=== PATIENT | female | born 1995 | race African-American/Black ===

== ENCOUNTER → 2021-10-05 08:57 | Outpatient (BNVA) | payer OTHER, MEDICAID, SELFPAY | PROVIDERS: PCP Internal Medicine; Visit Provider Psychiatry & Neurology Neurology | DX: G24.3 Spasmodic torticollis (principal) | CPT/HCPCS: 64616; J0585 ==

== ENCOUNTER → 2022-01-04 09:28 | Outpatient (BNVA) | payer OTHER, MEDICAID, SELFPAY | PROVIDERS: PCP Internal Medicine; Visit Provider Psychiatry & Neurology Neurology | DX: G24.3 Spasmodic torticollis (principal) | CPT/HCPCS: 64616; J0585 ==

== ENCOUNTER → 2022-04-07 10:26 | Outpatient (BNVA) | payer OTHER, MEDICAID, SELFPAY | PROVIDERS: PCP Internal Medicine; Visit Provider Psychiatry & Neurology Neurology | DX: G24.3 Spasmodic torticollis (principal); G43.109 Migraine with aura, not intractable, without status migrainosus | CPT/HCPCS: 64616; J0585 ==

== ENCOUNTER → 2022-11-19 07:51 | Outpatient (BNVA) | payer OTHER, MEDICAID, SELFPAY | PROVIDERS: PCP Internal Medicine; Visit Provider Psychiatry & Neurology Neurology | DX: G24.3 Spasmodic torticollis (principal); G43.109 Migraine with aura, not intractable, without status migrainosus | CPT/HCPCS: 64616; J0585 ==

== ENCOUNTER → 2023-02-17 07:34 | Outpatient (BNVA) | payer OTHER, MEDICAID, SELFPAY | PROVIDERS: PCP Internal Medicine; Visit Provider Psychiatry & Neurology Neurology | DX: G24.3 Spasmodic torticollis (principal); G43.109 Migraine with aura, not intractable, without status migrainosus | CPT/HCPCS: 64616; J0585 ==

== ENCOUNTER 2023-05-30 07:35 | Outpatient (AMB) | payer OTHER, MEDICAID, SELFPAY ==
--- NOTE | 2023-05-30 07:44 | MHC.OFFVIS ---
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: No Allergies No Known Allergies [No Known Allergies*] Allergy (Unverified 05/30/23 07:44) HPI HPI Comments History of Present Illness Details Spasmodic Torticollis Headaches Bruxism 27y/o female comes for treatment with botulinum Toxin Side effects including spread of toxin effects , dysphagia, neck pain, headaches, breathing difficulties, bronchitis etc was discussed in detail and the patient agreed to the procedure.\ Botulinum toxin type A 200 units Lot number [id number] expiration -11/2025 was diluted with 4 cc of normal saline Muscles injected - Bilateral Scalene muscles- 25 units each Bilateral Levator-25 units ecah Bilateral Lateral pterygoid- 12.5 units each Bilateral Masseter- 25 units each Bilateral Temporalis -12.5 units each Total used- 200 units PFSH Medical History Acid reflux Headache Surgical History Hx of appendectomy [place] teeth removed Family History Father Migraine Mother Migraine Vertigo Family/Other Epilepsy Social History Alcohol intake: never Patient Tobacco Use Status: Never used Tobacco Physical Exam Vital Signs: Last Vital Signs Pulse 86 05/30/23 07:45 BP 98/66 05/30/23 07:45 Pulse Ox 98 05/30/23 07:45 Oxygen Delivery Method Room Air 05/30/23 07:45 Const Orientation/consciousness: patient oriented x3 HEENT Other: tightness in bilateral levator and scalenes with restricted range of motion Head: Yes normocephalic Neuro General: patient oriented x3 and moves all extremities Gait exam (Neuro): Normal gait present Office Procedures Botulinum toxin Injection 37964 - Dystonia Procedure code (CPT) selection complete Office Meds onabotulinumtoxinA Performing Provider: Fidelina Gregorio MD Administered by: Fidelina Gregorio MD on 05/30/23 08:04 Dose Route Admin Location Lot Number Expiration Date NDC Covering Machine Operator 200 unit IM [id number] 11/03/25 9386-2210-40 ALLERGAN/BOTOX Comments: see HPI Assessment & Plan Assessment & Plan (1) 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
[2023-05-30 07:45] VITALS: BP 98/66; PULSE 86; O2SAT 98
== END 2023-05-30 08:01 | disposition home or self-care (01) ==
PROVIDERS: Visit Provider Psychiatry & Neurology Neurology
DX: G24.3 Spasmodic torticollis (principal)
CPT/HCPCS: 64616

== ENCOUNTER → 2023-05-30 07:35 | Outpatient (BNVA) | payer OTHER, MEDICAID, SELFPAY | PROVIDERS: Visit Provider Psychiatry & Neurology Neurology | DX: G24.3 Spasmodic torticollis (principal); G24.9 Dystonia, unspecified; G43.709 Chronic migraine without aura, not intractable, without status migrainosus | CPT/HCPCS: 64616; 99211; J0585 ==

== ENCOUNTER → 2023-09-07 08:06 | Outpatient (BNVA) | payer OTHER, MEDICAID, SELFPAY | PROVIDERS: PCP Internal Medicine; Visit Provider Psychiatry & Neurology Neurology ==

== ENCOUNTER 2023-10-13 15:26 | Outpatient (AMB) | payer MEDICAID, SELFPAY ==
--- NOTE | 2023-10-13 15:31 | A.OFFVIS_ITS ---
Intake Intake Visit Reasons: Botox -Pending approval -09/19 - Conf Allergies No Known Allergies [No Known Allergies*] Allergy (Verified 10/13/23 15:32) Medication List - Last Reconciled 10/13/23 by Fidelina Gregorio MD amitriptyline 10 mg PO BEDTIME cyclobenzaprine 10 mg PO BEDTIME 30 days fluticasone propionate 50 mcg/actuation (Flonase Allergy Relief) 1 spray intranasal DAILY magnesium oxide 400 mg PO DAILY onabotulinumtoxinA (Botox) IM .q 3 months HPI HPI Comments History of Present Illness Details Spasmodic Torticollis Headaches Bruxism 28y/o female comes for treatment with adan tulinum Toxin Side effects including spread of toxin effects , dysphagia, neck pain, headaches, breathing difficulties, bronchitis etc was discussed in detail and the patient agreed to the procedure.\ Botulinum toxin type A 200 units Lot number -[id number] expiration - 01/2026 was diluted with 4 cc of normal saline Muscles injected - Bilateral Scalene muscles- 25 units each Bilateral Levator-25 units ecah Bilateral Lateral pterygoid- 12.5 units each Bilateral Masseter- 25 units each Bilateral Temporalis -12.5 units each Total used- 200 units PFSH Medical History Acid reflux Headache Surgical History [place] teeth removed Hx of appendectomy Family History Father Migraine Mother Migraine Vertigo Family/Other Epilepsy Social History Alcohol intake: never Patient Tobacco Use Status: Never used Tobacco Physical Exam Const Orientation/consciousness: patient oriented x3 HEENT Other: tightness in bilateral levator and scalenes with restricted range of motion Head: Yes normocephalic Neuro General: patient oriented x3 and moves all extremities Gait exam (Neuro): Normal gait present Office Procedures Botulinum toxin Injection 06463 - Dystonia Procedure code (CPT) selection complete Office Meds onabotulinumtoxinA 200 unit solution for injection Performing Provider: Fidelina Gregorio MD Performing Location: [facility] [place] [facility] Administered by: Fidelina Gregorio MD on 10/13/23 15:51 Dose Route Admin Location Dispensed Lot Number Expiration Date NDC Blow Mold Operator 200 unit IM 200 units [id number] 01/31/26 0750-5042-38 ALLERGAN/BOTOX Comments: see HPI Assessment & Plan Assessment & Plan (1) Cervical dystonia: Code(s): G24.3 - Spasmodic torticollis (2) Chronic migraine with aura: Code(s): G43.109 - Migraine with aura, not intractable, without status migrainosus Plan Patient tolerated the procedure well She will call with any side effects amitriptyline 10mg qhs Orders: Orders AMB Botulinum toxin Injection 10/13/23 G24.3 - Spasmodic torticollis AMB Botulinum toxin Injection 10/13/23 G24.3 - Spasmodic torticollis Medications: New onabotulinumtoxinA 200 units IM ONCE 1 ea 0RF torticollis G24.3 - Spasmodic torticollis Coding Level of Care Code Est Pt Level 1 (77141) Diagnoses Cervical dystonia G24.3 Chronic migraine with aura G43.109 CPT Codes Botox Injection - Botox 4: 87662 - Dystonia ([id number])
== END 2023-10-13 15:54 | disposition home or self-care (01) ==
PROVIDERS: PCP Internal Medicine; Visit Provider Psychiatry & Neurology Neurology
DX: G24.3 Spasmodic torticollis (principal)
CPT/HCPCS: 64616

== ENCOUNTER → 2023-10-13 15:26 | Outpatient (BNVA) | payer MEDICAID, SELFPAY | PROVIDERS: PCP Internal Medicine; Visit Provider Psychiatry & Neurology Neurology | DX: G43.109 Migraine with aura, not intractable, without status migrainosus (principal); G24.3 Spasmodic torticollis | CPT/HCPCS: 64616; 99211; J0585 ==

== ENCOUNTER 2024-01-17 14:58 | Outpatient (AMB) | payer MEDICAID, SELFPAY ==
--- NOTE | 2024-01-17 15:03 | A.OFFVIS_ITS ---
Intake Vital Signs 01/17/24 15:04 Height 5 ft 5 in Weight 145 lb BMI 24.1 BP 112/64 Blood Pressure Location Rt brachial Position Sitting Respiration 16 Pulse 80 Pulse Source Pulse Oximeter Pulse Oximetry (%) 100 Oxygen Delivery Method Room Air Intake Visit Reasons: Botox-LVM Intake Note: Pt presents to the office for Botox injections. 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 Allergies No Known Allergies [No Known Allergies*] Allergy (Verified 01/17/24 15:03) Medication List - Last Reconciled 01/17/24 by Fidelina Gregorio MD amitriptyline 10 mg PO BEDTIME cyclobenzaprine 10 mg PO BEDTIME 30 days fluticasone propionate 50 mcg/actuation (Flonase Allergy Relief) 1 spray intranasal DAILY magnesium oxide 400 mg PO DAILY onabotulinumtoxinA (Botox) IM .q 3 months HPI HPI Comments History of Present Illness Details Spasmodic Torticollis Headaches Bruxism 28y/o female comes for treatment with adan tulinum Toxin Side effects including spread of toxin effects , dysphagia, neck pain, headaches, breathing difficulties, bronchitis etc was discussed in detail and the patient agreed to the procedure.\ Botulinum toxin type A 200 units Lot number -[id number] expiration - 03/2026 was diluted with 4 cc of normal saline Muscles injected - Bilateral Scalene muscles- 25 units each Bilateral Levator-25 units ecah Bilateral Lateral pterygoid- 12.5 units each Bilateral Masseter- 25 units each Bilateral Temporalis -12.5 units each Total used- 200 units PFSH Medical History Acid reflux Headache Surgical History [place] teeth removed Hx of appendectomy Family History Father Migraine Mother Migraine Vertigo Family/Other Epilepsy Social History Alcohol intake: never Patient Tobacco Use Status: Never used Tobacco Physical Exam Vital Signs: Last Vital Signs Pulse 80 01/17/24 15:04 Resp 16 01/17/24 15:04 BP 112/64 01/17/24 15:04 Pulse Ox 100 01/17/24 15:04 Oxygen Delivery Method Room Air 01/17/24 15:04 BMI result Body Mass Index 24.1 Const Orientation/consciousness: patient oriented x3 HEENT Other: tightness in bilateral levator and scalenes with restricted range of motion Head: Yes normocephalic Neuro General: patient oriented x3 and moves all extremities Gait exam (Neuro): Normal gait present Office Procedures Botulinum toxin Injection 29074 - Dystonia Procedure code (CPT) selection complete Office Meds onabotulinumtoxinA 200 unit solution for injection Performing Provider: Fidelina Gregorio MD Performing Location: [facility] [place] [facility] Administered by: Fidelina Gregorio MD on 01/17/24 15:24 Dose Route Admin Location Dispensed Lot Number Expiration Date [facility] Hairspring Setter 200 unit subcut 200 units [id number] 03/03/26 8091-4197-90 ALLERGAN/BOTOX Comments: see hpi Assessment & Plan Assessment & Plan (1) Cervical dystonia: Code(s): G24.3 - Spasmodic torticollis (2) Chronic migraine with aura: Code(s): G43.109 - Migraine with aura, not intractable, without status migrainosus Plan Patient tolerated the procedure well She will call with any side effects amitriptyline 10mg qhs Orders: Orders AMB Botulinum toxin Injection Today G24.3 - Spasmodic torticollis Medications: New onabotulinumtoxinA 200 units subcut ONCE 1 ea 0RF cervical dystonia G24.3 - Spasmodic torticollis Coding Level of Care Code Est Pt Level 1 (96979) Diagnoses Cervical dystonia G24.3 Chronic migraine with aura G43.109 CPT Codes Botox Injection - Botox 4: 99188 - Dystonia ([id number])
[2024-01-17 15:04] VITALS: BP 112/64; PULSE 80; RESP 16; O2SAT 100; BMI 24.1
== END 2024-01-17 15:25 | disposition home or self-care (01) ==
PROVIDERS: PCP Internal Medicine; Visit Provider Psychiatry & Neurology Neurology
DX: G24.3 Spasmodic torticollis (principal)
CPT/HCPCS: 64616

== ENCOUNTER → 2024-01-17 14:58 | Outpatient (BNVA) | payer MEDICAID, SELFPAY | PROVIDERS: PCP Internal Medicine; Visit Provider Psychiatry & Neurology Neurology | DX: G24.3 Spasmodic torticollis (principal); G43.109 Migraine with aura, not intractable, without status migrainosus | CPT/HCPCS: 64616; 99211; J0585 ==

== ENCOUNTER 2024-04-18 14:24 | Outpatient (AMB) | payer MEDICAID, SELFPAY ==
--- NOTE | 2024-04-18 14:30 | MHC.OFFVIS ---
Vital Signs 04/18/24 14:32 Height 5 ft 5 in Weight 145 lb BMI 24.1 BP 124/68 Blood Pressure Location Rt brachial Position Sitting Respiration 15 Pulse 98 Pulse Source Pulse Oximeter Pulse Oximetry (%) 99 Oxygen Delivery Method Room Air Intake Visit Reasons: BOTOX - LVM w/add Intake Note: Pt presents to the office for Botox injections for cervical dystonia. 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: No Allergies No Known Allergies [No Known Allergies*] Allergy (Verified 04/18/24 14:31) Medication List - Last Reconciled 04/18/24 by Fidelina Gregorio MD amitriptyline 10 mg PO BEDTIME cyclobenzaprine 10 mg PO BEDTIME 30 days fluticasone propionate 50 mcg/actuation (Flonase Allergy Relief) 1 spray intranasal DAILY magnesium oxide 400 mg PO DAILY onabotulinumtoxinA (Botox) IM .q 3 months HPI Comments Details: Spasmodic Torticollis Headaches Bruxism 28y/o female comes for treatment with botulinum Toxin Side effects including spread of toxin effects , dysphagia, neck pain, headaches, breathing difficulties, bronchitis etc was discussed in detail and the patient agreed to the procedure.\ Botulinum toxin type A 200 units Lot number -[id number] expiration -05/2026 was diluted with 4 cc of normal saline Muscles injected - Bilateral Scalene muscles- 25 units each Bilateral Levator-25 units ecah Bilateral Lateral pterygoid- 12.5 units each Bilateral Masseter- 25 units each Bilateral Temporalis -12.5 units each Total used- 200 units PFSH Medical History Acid reflux Headache Surgical History [place] teeth removed Hx of appendectomy Family History Father Migraine Mother Migraine Vertigo Family/Other Epilepsy Social History Alcohol intake: never Patient Tobacco Use Status: Never used Tobacco Physical Exam Vital Signs: Last Vital Signs Pulse 98 04/18/24 14:32 Resp 15 04/18/24 14:32 BP 124/68 04/18/24 14:32 Pulse Ox 99 04/18/24 14:32 Oxygen Delivery Method Room Air 04/18/24 14:32 BMI result Body Mass Index 24.1 Const Orientation/consciousness: patient oriented x3 HEENT Other: tightness in bilateral levator and scalenes with restricted range of motion Head: Yes normocephalic Neuro General: patient oriented x3 and moves all extremities Gait exam (Neuro): Normal gait present Office Procedures Botulinum toxin Injection 58268 - Dystonia Procedure code (CPT) selection complete Office Meds onabotulinumtoxinA 200 unit solution for injection Performing Provider: Fidelina Gregorio MD Performing Location: [facility] [place] [facility] Administered by: Fidelina Gregorio MD on 04/18/24 14:55 Dose Route Admin Location Dispensed Lot Number Expiration Date [facility] Sneller Hand 200 unit subcut 200 units [id number] 05/03/26 4341-6329-96 ALLERGAN/BOTOX Comments: see HPI Assessment & Plan Assessment & Plan (1) Cervical dystonia: Code(s): G24.3 - Spasmodic torticollis Category: Medical (2) Chronic migraine with aura: Code(s): G43.109 - Migraine with aura, not intractable, without status migrainosus Category: Medical Plan Patient tolerated the procedure well She will call with any side effects amitriptyline 10mg qhs Orders: Orders AMB Botulinum toxin Injection Today G24.3 - Spasmodic torticollis Medications: New onabotulinumtoxinA 200 units subcut ONCE 1 ea 0RF Spasmodic torticollis G24.3 - Spasmodic torticollis Coding Level of Care Code Est Pt Level 1 (55472) Diagnoses Cervical dystonia G24.3 Chronic migraine with aura G43.109 CPT Codes Botox Injection - Botox 4: 08345 - Dystonia ([id number])
[2024-04-18 14:32] VITALS: BP 124/68; PULSE 98; RESP 15; O2SAT 99; BMI 24.1
== END 2024-04-18 14:49 | disposition home or self-care (01) ==
PROVIDERS: PCP Internal Medicine; Visit Provider Psychiatry & Neurology Neurology
DX: G24.3 Spasmodic torticollis (principal)
CPT/HCPCS: 64616

== ENCOUNTER → 2024-04-18 14:24 | Outpatient (BNVA) | payer MEDICAID, SELFPAY | PROVIDERS: PCP Internal Medicine; Visit Provider Psychiatry & Neurology Neurology | DX: G24.3 Spasmodic torticollis (principal); G43.E09 Chronic migraine with aura, not intractable, without status migrainosus | CPT/HCPCS: 64616; 99211; J0585 ==

== ENCOUNTER 2024-07-25 08:03 | Outpatient (AMB) | payer MEDICAID, SELFPAY ==
[2024-07-25 08:11] VITALS: BMI 24.1
--- NOTE | 2024-07-25 08:11 | A.OFFVIS_ITS ---
Vital Signs 07/25/24 08:11 Height 5 ft 5 in Weight 145 lb BMI 24.1 Intake Visit Reasons: BOTOX Intake Note: Patient presents for botox Allergies No Known Allergies [No Known Allergies*] Allergy (Verified 07/25/24 08:15) Medication List - Last Reconciled 07/25/24 by Fidelina Gregorio MD amitriptyline 10 mg PO BEDTIME cyclobenzaprine 10 mg PO BEDTIME 30 days fluticasone propionate 50 mcg/actuation (Flonase Allergy Relief) 1 spray intranasal DAILY magnesium oxide 400 mg PO DAILY onabotulinumtoxinA (Botox) IM .q 3 months HPI Comments Details: Spasmodic Torticollis Headaches Bruxism 28y/o female comes for treatment with botulinum Toxin Side effects including spread of toxin effects , dysphagia, neck pain, headaches, breathing difficulties, bronchitis etc was discussed in detail and the patient agreed to the procedure.\ Botulinum toxin type A 200 units Lot number [id number] expiration - 11/2026 was diluted with 4 cc of normal saline Muscles injected - Bilateral Scalene muscles- 25 units each Bilateral Levator-25 units ecah Bilateral Lateral pterygoid- 12.5 units each Bilateral Masseter- 25 units each Bilateral Temporalis -12.5 units each Total used- 200 units PFSH Medical History Acid reflux Headache Surgical History [place] teeth removed Hx of appendectomy Family History Father Migraine Mother Migraine Vertigo Family/Other Epilepsy Social History Alcohol intake: never Patient Tobacco Use Status: Never used Tobacco Physical Exam Vital Signs: BMI result Body Mass Index 24.1 Const Orientation/consciousness: patient oriented x3 HEENT Other: tightness in bilateral levator and scalenes with restricted range of motion Head: Yes normocephalic Neuro General: patient oriented x3 and moves all extremities Gait exam (Neuro): Normal gait present Office Procedures Botulinum toxin Injection 18442 - Dystonia Procedure code (CPT) selection complete Office Meds onabotulinumtoxinA 200 unit solution for injection Performing Provider: Fidelina Gregorio MD Performing Location: [facility] [place] [facility] Administered by: Fidelina Gregorio MD on 07/25/24 09:45 Dose Route Admin Location Dispensed Lot Number Expiration Date NDC Working Second Hand 200 unit subcut 200 units [id number] 11/03/26 9751-0835-68 ALLERGAN/BOTOX Comments: see hpi Assessment & Plan Assessment & Plan (1) Cervical dystonia: Code(s): G24.3 - Spasmodic torticollis Category: Medical (2) Chronic migraine with aura: Code(s): G43.109 - Migraine with aura, not intractable, without status migrainosus Category: Medical Plan Patient tolerated the procedure well She will call with any side effects amitriptyline 10mg qhs Orders: Orders AMB Botulinum toxin Injection Today G24.3 - Spasmodic torticollis Medications: New onabotulinumtoxinA 200 units subcut ONCE 1 ea 0RF [id number] G24.3 - Spasmodic torticollis Coding Level of Care Code Est Pt Level 1 (88801) Diagnoses Cervical dystonia G24.3 Chronic migraine with aura G43.109 CPT Codes Botox Injection - Botox 4: 81942 - Dystonia ([id number])
== END 2024-07-25 08:41 | disposition home or self-care (01) ==
PROVIDERS: PCP Internal Medicine; Visit Provider Psychiatry & Neurology Neurology
DX: G43.E09 Chronic migraine with aura, not intractable, without status migrainosus (principal)
CPT/HCPCS: 64615

== ENCOUNTER → 2024-07-25 08:03 | Outpatient (BNVA) | payer MEDICAID, SELFPAY | PROVIDERS: PCP Internal Medicine; Visit Provider Psychiatry & Neurology Neurology | DX: G43.109 Migraine with aura, not intractable, without status migrainosus (principal); G24.3 Spasmodic torticollis | CPT/HCPCS: 64615; 99211; J0585 ==

== ENCOUNTER 2024-10-30 07:28 | Outpatient (AMB) | payer MEDICAID, SELFPAY ==
[2024-10-30 07:35] VITALS: BMI 24.1
--- NOTE | 2024-10-30 07:35 | MHC.OFFVIS ---
Vital Signs 10/30/24 07:35 Height 5 ft 5 in Weight 145 lb BMI 24.1 Intake Visit Reasons: BOTOX Intake Note: Patient presents for botox Allergies No Known Allergies [No Known Allergies*] Allergy (Verified 10/30/24 07:37) Medication List - Last Reconciled 10/30/24 by Fidelina Gregorio MD amitriptyline 10 mg PO BEDTIME cyclobenzaprine 10 mg PO BEDTIME 30 days fluticasone propionate 50 mcg/actuation (Flonase Allergy Relief) 1 spray intranasal DAILY magnesium oxide 400 mg PO DAILY onabotulinumtoxinA (Botox) IM .q 3 months HPI Comments Details: Spasmodic Torticollis Headaches Bruxism 29y/o female comes for treatment with botulinum Toxin Side effects including spread of toxin effects , dysphagia, neck pain, headaches, breathing difficulties, bronchitis etc was discussed in detail and the patient agreed to the procedure.\ Botulinum toxin type A 200 units Lot number [id number] expiration - 06/2026 was diluted with 4 cc of normal saline Muscles injected - Bilateral Scalene muscles- 25 units each Bilateral Levator-25 units ecah Bilateral Lateral pterygoid- 12.5 units each Bilateral Masseter- 25 units each Bilateral Temporalis -12.5 units each Total used- 200 units PFSH Medical History Acid reflux Headache Surgical History [place] teeth removed Hx of appendectomy Family History Father Migraine Mother Migraine Vertigo Family/Other Epilepsy Social History Alcohol intake: never Patient Tobacco Use Status: Never used Tobacco Physical Exam Vital Signs: BMI result Body Mass Index 24.1 Const Orientation/consciousness: patient oriented x3 HEENT Other: tightness in bilateral levator and scalenes with restricted range of motion Head: Yes normocephalic Neuro General: patient oriented x3 and moves all extremities Gait exam (Neuro): Normal gait present Office Procedures Botulinum toxin Injection 09427 - Migraine Procedure code (CPT) selection complete Office Meds onabotulinumtoxinA 200 unit solution for injection Performing Provider: Fidelina Gregorio MD Performing Location: [facility] [place] [facility] Administered by: Fidelina Gregorio MD on 10/30/24 07:56 Dose Route Admin Location Dispensed Lot Number Expiration Date ND Case Mgr 200 unit subcut 200 units [id number] ALLERGAN/BOTOX Comments: see HPI Assessment & Plan Assessment & Plan (1) Cervical dystonia: Code(s): G24.3 - Spasmodic torticollis Category: Medical (2) Chronic migraine with aura: Code(s): G43.109 - Migraine with aura, not intractable, without status migrainosus Category: Medical Qualifiers: Status migrainosus presence: without status migrainosus Intractability: intractable Qualified Code(s): G43.E19 - Chronic migraine with aura, intractable, without status migrainosus Plan Patient tolerated the procedure well She will call with any side effects amitriptyline 10mg qhs Orders: Orders AMB Botulinum toxin Injection Today G43.109 - Migraine with aura, not intractable, without status migrainosus Medications: New onabotulinumtoxinA 200 units subcut ONCE 1 ea 0RF migraine G43.109 - Migraine with aura, not intractable, without status migrainosus Coding Level of Care Code Est Pt Level 1 (68378) Diagnoses Cervical dystonia G24.3 Intractable chronic migraine with aura and without status migrainosus G43.E19 Status migrainosus presence: without status migrainosus Intractability: intractable CPT Codes Botox Injection - Botox 3: 19476 - Migraine ([id number])
== END 2024-10-30 07:52 | disposition home or self-care (01) ==
PROVIDERS: PCP Internal Medicine; Visit Provider Psychiatry & Neurology Neurology
DX: G43.E19 Chronic migraine with aura, intractable, without status migrainosus (principal)
CPT/HCPCS: 64615

== ENCOUNTER → 2024-10-30 07:28 | Outpatient (BNVA) | payer MEDICAID, SELFPAY | PROVIDERS: PCP Internal Medicine; Visit Provider Psychiatry & Neurology Neurology | DX: G43.E19 Chronic migraine with aura, intractable, without status migrainosus (principal); G24.3 Spasmodic torticollis | CPT/HCPCS: 64615; 99211; J0585 ==

== ENCOUNTER 2025-02-05 12:31 | Outpatient (AMB) | payer MEDICAID, SELFPAY ==
--- NOTE | 2025-02-05 12:46 | MHC.OFFVIS ---
Vital Signs 02/05/25 12:47 Height 5 ft 5 in Weight 145 lb BMI 24.1 Intake Visit Reasons: BOTOX Intake Note: Patient presents for botox injection. pharmacy supplied Allergies No Known Allergies [No Known Allergies*] Allergy (Verified 02/05/25 12:47) Medication List - Last Reconciled 02/05/25 by Fidelina Gregorio MD amitriptyline 10 mg PO BEDTIME cyclobenzaprine 10 mg PO BEDTIME 30 days fluticasone propionate 50 mcg/actuation (Flonase Allergy Relief) 1 spray intranasal DAILY magnesium oxide 400 mg PO DAILY onabotulinumtoxinA (Botox) IM .q 3 months HPI Comments Details: Spasmodic Torticollis Headaches Bruxism 29y/o female comes for treatment with botulinum Toxin Side effects including spread of toxin effects , dysphagia, neck pain, headaches, breathing difficulties, bronchitis etc was discussed in detail and the patient agreed to the procedure.\ Botulinum toxin type A 200 units Lot number [id number] expiration - 01/2027 was diluted with 4 cc of normal saline Muscles injected - Bilateral Scalene muscles- 25 units each Bilateral Levator-25 units ecah Bilateral Lateral pterygoid- 12.5 units each Bilateral Masseter- 25 units each Bilateral Temporalis -12.5 units each Total used- 200 units PFSH Medical History Acid reflux Headache Surgical History [place] teeth removed Hx of appendectomy Family History Father Migraine Mother Migraine Vertigo Family/Other Epilepsy Social History Alcohol intake: never Patient Tobacco Use Status: Never used Tobacco Physical Exam Vital Signs: BMI result Body Mass Index 24.1 Const Orientation/consciousness: patient oriented x3 HEENT Other: tightness in bilateral levator and scalenes with restricted range of motion Head: Yes normocephalic Neuro General: patient oriented x3 and moves all extremities Gait exam (Neuro): Normal gait present Office Procedures Botulinum toxin Injection 41259 - Dystonia Procedure code (CPT) selection complete Office Meds onabotulinumtoxinA 200 unit solution for injection Performing Provider: Fidelina Gregorio MD Performing Location: [facility] [place] [facility] Administered by: Fidelina Gregorio MD on 02/05/25 13:20 Dose Route Admin Location Dispensed Lot Number Expiration Date ND Patternmaker Apprentice Metal 200 unit IM 200 units 6069-8020-51 ALLERGAN/BOTOX Comments: see HPI Assessment & Plan Assessment & Plan (1) Cervical dystonia: Code(s): G24.3 - Spasmodic torticollis Category: Medical (2) Chronic migraine with aura: Code(s): G43.109 - Migraine with aura, not intractable, without status migrainosus Category: Medical Plan Patient tolerated the procedure well She will call with any side effects amitriptyline 10mg qhs Orders: Orders AMB Botulinum toxin Injection Today G24.3 - Spasmodic torticollis Medications: New onabotulinumtoxinA 200 units IM ONCE 1 ea 0RF torticollis G24.3 - Spasmodic torticollis Coding Level of Care Code Est Pt Level 1 (73257) Diagnoses Cervical dystonia G24.3 Chronic migraine with aura G43.109 CPT Codes Botox Injection - Botox 4: 29058 - Dystonia ([id number])
[2025-02-05 12:47] VITALS: BMI 24.1
== END 2025-02-05 13:10 | disposition home or self-care (01) ==
LOC: HO.HSMS 12:32
PROVIDERS: PCP Internal Medicine; Visit Provider Psychiatry & Neurology Neurology
DX: G24.3 Spasmodic torticollis (principal)
CPT/HCPCS: 64616

== ENCOUNTER → 2025-02-05 12:31 | Outpatient (BNVA) | payer MEDICAID, SELFPAY | PROVIDERS: PCP Internal Medicine; Visit Provider Psychiatry & Neurology Neurology | DX: G43.109 Migraine with aura, not intractable, without status migrainosus (principal); G24.3 Spasmodic torticollis | CPT/HCPCS: 64616; 99211; J0585 ==

== ENCOUNTER 2025-05-07 08:22 | Outpatient (AMB) | payer MEDICAID, SELFPAY ==
[2025-05-07 08:18] VITALS: BP 110/60; PULSE 95; O2SAT 100; BMI 24.0
--- NOTE | 2025-05-07 08:18 | MHC.OFFVIS ---
Vital Signs 05/07/25 08:18 Height 5 ft 5 in Weight 144 lb BMI 24.0 BP 110/60 Blood Pressure Location Rt brachial Position Sitting Pulse 95 Pulse Source Pulse Oximeter Pulse Oximetry (%) 100 Oxygen Delivery Method Room Air Intake Visit Reasons: Botox Desk Director Required: No Accompanied by: Self / Same As Patient Allergies No Known Allergies (No Known Allergies*) Allergy (Verified 05/07/25 08:24) Medication List - Last Reconciled 05/07/25 by Fidelina Gregorio MD amitriptyline 10 mg PO BEDTIME cyclobenzaprine 10 mg PO BEDTIME 30 days fluticasone propionate 50 mcg/actuation (Flonase Allergy Relief) 1 spray intranasal DAILY magnesium oxide 400 mg PO DAILY onabotulinumtoxinA (Botox) IM .q 3 months HPI Comments Details: Spasmodic Torticollis Headaches Bruxism 29y/o female comes for treatment with botulinum Toxin Side effects including spread of toxin effects , dysphagia, neck pain, headaches, breathing difficulties, bronchitis etc was discussed in detail and the patient agreed to the procedure. Botulinum toxin type A 200 units Lot number [id number] expiration - 11/2027 was diluted with 4 cc of normal saline Muscles injected - Bilateral Scalene muscles- 25 units each Bilateral Levator-25 units ecah Bilateral Lateral pterygoid- 12.5 units each Bilateral Masseter- 25 units each Bilateral Temporalis -12.5 units each Total used- 200 units PFSH Medical History Acid reflux Headache Surgical History [place] teeth removed Hx of appendectomy Family History Father Migraine Mother Migraine Vertigo Family/Other Epilepsy Social History Alcohol intake: never Patient Tobacco Use Status: Never used Tobacco Physical Exam Vital Signs: Last Vital Signs Pulse 95 05/07/25 08:18 BP 110/60 05/07/25 08:18 Pulse Ox 100 05/07/25 08:18 Oxygen Delivery Method Room Air 05/07/25 08:18 BMI result Body Mass Index 24.0 Const Orientation/consciousness: patient oriented x3 HEENT Other: tightness in bilateral levator and scalenes with restricted range of motion Head: Yes normocephalic Neuro General: patient oriented x3 and moves all extremities Gait exam (Neuro): Normal gait present Office Procedures Botulinum toxin Injection 67201 - Dystonia Procedure code (CPT) selection complete Office Meds onabotulinumtoxinA 200 unit solution for injection Performing Provider: Fidelina Gregorio MD Performing Location: [facility] Administered by: Fidelina Gregorio MD on 05/07/25 08:43 Dose Route Admin Location Dispensed Lot Number Expiration Date FORMERLY NAMED [facility] [employer] 200 unit subcut 200 units [id number] ALLERGAN/BOTOX Total Dispensed Waste 200 units 0 % Comments: see hpi Assessment & Plan Assessment & Plan (1) Cervical dystonia: Code(s): G24.3 - Spasmodic torticollis Category: Medical (2) Chronic migraine with aura: Code(s): G43.109 - Migraine with aura, not intractable, without status migrainosus Category: Medical Qualifiers: Status migrainosus presence: without status migrainosus Intractability: not intractable Qualified Code(s): G43.E09 - Chronic migraine with aura, not intractable, without status migrainosus (3) Dystonia, unspecified: Comment: Jaw tightness and spasm Code(s): G24.9 - Dystonia, unspecified Category: Medical Plan Patient tolerated the procedure well She will call with any side effects amitriptyline 10mg qhs Orders: Orders AMB Botulinum toxin Injection Today G24.3 - Spasmodic torticollis, G24.9 - Dystonia, unspecified Coding Level of Care Code Est Pt Level 1 (77875) Diagnoses Cervical dystonia G24.3 Chronic migraine with aura without status migrainosus, not intractable G43.E09 Status migrainosus presence: without status migrainosus Intractability: not intractable Dystonia, unspecified G24.9 CPT Codes Botox Injection - Botox 4: 09268 - Dystonia ([id number])
--- OUTSIDE RECORDS SUMMARY | 2025-05-07 08:29 | XMS_ITS | Clinical Summary ---
Author Organization [facility] Address [address] [place] [address] Phone Care Team Providers Care Floral Specialist Name Role Phone Erasto Blanca MD Primary Care Provider [phone] Allergies No known active allergies Medications omeprazole (PRILOSEC) 20 MG capsule Take 1 capsule (20 mg total) by mouth daily. 14 capsule 8 Active Additional Information Patient not taking.Reported on 10/01/2018 ondansetron (ZOFRAN) 4 MG tablet Take 1 tablet (4 mg total) by mouth every 8 (eight) hours as needed for nausea. 10 tablet 8 Active Additional Information Patient not taking.Reported on 10/01/2018 norethindrone-et hinyl estradiol-iron (ESTROSTEP FE) 1-20(5)/1-30(7) /1mg-35mcg (9) Tab Take 1 tablet by mouth daily. Active fluticasone propionate (FLONASE) 50 mcg/actuation nasal sprayIndications :Acute non-recurrent pansinusitis 2 sprays by Nasal route daily. 16 g 8 Active sodium bicarb-sodium chloride (SINUS RINSE STARTER) pkdvIndications: Acute non-recurrent pansinusitis 1 packet by Each Nare route as needed. 25 packet 12/30/201 8 Active Active Problems No known active problems Social History Tobacco Use Types Packs/Day Years Used Date Smoking Tobacco: Never Smokeless Tobacco: Never Alcohol Use Standard Drinks/Week Comments No 0 (1 standard drink = 0.6 oz pur e alcohol) Education Answer Date Recorded Are you interested in more education? Not on saturnino e 01/28/2023 Are you concerned about learning? Not on file 01/28/2023 No 01/28/2023 No 01/28/2023 Digital Access Answer Date Recorded No 03/01/2023 No 03/01/2023 No 03/01/2023 Reliable internet access at home? Not on file 03/01/2023 Device with a working camera? Not on file Comments No Sex and Gender Information Value Date Recorded Sex Assigned at Female 04/15/2020 12:23 PM EDT Legal Sex Female 7:39 PM EST Gender Identity Female 04/15/2020 12:23 PM EDT Sexual Orientation Straight 04/15/2020 12 :23 PM EDT Last Filed Vital Signs Vital Sign Reading Time Taken Comments Blood Pressure 121/75 11/19/2018 2:14 PM EST Pulse 77 11/19/2018 2:14 PM EST Temperature 37.2 C (98.9 F) 11/19/2018 2:14 PM EST Respiratory Rate 16 06/01/2018 12:15 AM EDT Oxygen Saturation 99% 11/19/2018 2:14 PM EST Inhaled Oxygen Concentration - - Weight 56.7 kg (125 lb) 11/19/2018 2:14 PM EST Height 165.1 cm (5' 5 ) 11/19/2018 2:14 PM EST Body Mass Index 20.8 11/19/2018 2:14 PM EST Plan of Treatment Health Maintenance Due Date Last Done Comments DEPRESSION SCREENING 2009 HEPATITIS C SCREENING 2015 HIV ONE-TIME SCREENING (18-65 YEARS) 2015 PAP SMEAR 2018 SMOKING STATUS SCREENING (Once After 26 Yrs) 2023 COVID-19 VACCINE (2023- season) 2024 Adult Td,Tdap Booster 03/23/2029 03/23/2019 , 03/25/2008, 09/13/2006 HIB VACCINES Completed 11/21/1998, 02/02, 1997, Additional history exists MENINGOCOCCAL VACCINES (ACWY) Completed 08/25/2015, 08/07/2009 HEPATITIS A VACCINES Aged Out No long er eligible based on patient's age to complete this topic MENINGOCOCCAL VACCINES (B) Aged Out N o longer eligible based on patient's age to complete this topic PNEUMOCOCCAL VACCINES (0-49 years) Aged Out No longer eligible based on patient's age to complete this topic Medical Devices Not on file Insurance [facility] Care Teams Floral Specialist Relationship Specialty Start Date End Date Erasto Blanca MD [address] [place] [phone] PCP - General Internal Medicine 10/01/18 Additional Source Comments The information contained in this document represents components of the legal health record. It is not the complete legal health record.[facility]
== END 2025-05-07 08:42 | disposition home or self-care (01) ==
LOC: HO.HSMS 08:22
PROVIDERS: PCP Internal Medicine; Visit Provider Psychiatry & Neurology Neurology
DX: G24.3 Spasmodic torticollis (principal); G43.E09 Chronic migraine with aura, not intractable, without status migrainosus; G24.9 Dystonia, unspecified
CPT/HCPCS: 64616

== ENCOUNTER → 2025-05-07 08:22 | Outpatient (BNVA) | payer MEDICAID, SELFPAY | PROVIDERS: PCP Internal Medicine; Visit Provider Psychiatry & Neurology Neurology | DX: G24.3 Spasmodic torticollis (principal); G43.E09 Chronic migraine with aura, not intractable, without status migrainosus; G24.9 Dystonia, unspecified | CPT/HCPCS: 64616; 99211; J0585 ==

== ENCOUNTER 2025-08-13 08:20 | Outpatient (AMB) | payer MEDICAID, SELFPAY ==
--- NOTE | 2025-08-13 08:21 | A.OFFVIS_ITS ---
Vital Signs 08/13/25 08:22 Height 5 ft 5 in Weight 147 lb 8 oz BMI 24.5 BP 104/62 Blood Pressure Location Rt brachial Position Sitting Pulse 82 Pulse Source Pulse Oximeter Pulse Oximetry (%) 98 Oxygen Delivery Method Room Air Intake Visit Reasons: BOTOX-LVM Intake Note: Botox 200 Refractory Grinder Operator Required: No Accompanied by: Self / Same As Patient Allergies No Known Allergies (No Known Allergies*) Allergy (Verified 08/13/25 08:22) Medication List - Last Reconciled 08/13/25 by Fidelina Gregorio MD cyclobenzaprine 10 mg PO BEDTIME 30 days fluticasone propionate 50 mcg/actuation (Flonase Allergy Relief) 1 spray intranasal DAILY magnesium oxide 400 mg PO DAILY onabotulinumtoxinA (Botox) IM .q 3 months HPI Comments Details: Spasmodic Torticollis Headaches Bruxism 30y/o female comes for treatment with botulinum Toxin Side effects including spread of toxin effects , dysphagia, neck pain, headaches, breathing difficulties, bronchitis etc was discussed in detail and the patient agreed to the procedure. Botulinum toxin type A 200 units Lot number [id number] expiration - 11/2027 was diluted with 4 cc of normal saline Muscles injected - Bilateral Scalene muscles- 25 units each Bilateral Levator-25 units ecah Bilateral Lateral pterygoid- 12.5 units each Bilateral Masseter- 25 units each Bilateral Temporalis -12.5 units each Total used- 200 units PFSH Medical History Acid reflux Headache Surgical History [place] teeth removed Hx of appendectomy Family History Father Migraine Mother Migraine Vertigo Family/Other Epilepsy Social History Alcohol intake: never Patient Tobacco Use Status: Never used Tobacco Physical Exam Vital Signs: Last Vital Signs Pulse 82 08/13/25 08:22 BP 104/62 08/13/25 08:22 Pulse Ox 98 08/13/25 08:22 Oxygen Delivery Method Room Air 08/13/25 08:22 BMI result Body Mass Index 24.5 Const Orientation/consciousness: patient oriented x3 HEENT Other: tightness in bilateral levator and scalenes with restricted range of motion Head: Yes normocephalic Neuro General: patient oriented x3 and moves all extremities Gait exam (Neuro): Normal gait present Office Procedures Botulinum toxin Injection 12574 - Dystonia Procedure code (CPT) selection complete Office Meds onabotulinumtoxinA 200 unit solution for injection Performing Provider: Fidelina Gregorio MD Performing Location: [facility] Administered by: Fidelina Gregorio MD on 08/13/25 10:50 Dose Route Admin Location Dispensed Lot Number Expiration Date [facility] Data Communications Engineer 200 unit IM 200 units [id number] ALLERGAN /BOTOX Total Dispensed Waste 200 units 0 % Comments: see hpi Assessment & Plan Assessment & Plan (1) Cervical dystonia: Code(s): G24.3 - Spasmodic torticollis Category: Medical (2) Chronic migraine with aura: Code(s): G43.109 - Migraine with aura, not intractable, without status migrainosus Category: Medical (3) Dystonia, unspecified: Comment: Jaw tightness and spasm Code(s): G24.9 - Dystonia, unspecified Category: Medical Plan Patient tolerated the procedure well She will call with any side effects amitriptyline 10mg qhs Orders: Orders AMB Botulinum toxin Injection Today G24.3 - Spasmodic torticollis Coding Level of Care Code Est Pt Level 1 (31516) Diagnoses Cervical dystonia G24.3 Chronic migraine with aura G43.109 Dystonia, unspecified G24.9 CPT Codes Botox Injection - Botox 4: 79919 - Dystonia ([id number])
[2025-08-13 08:22] VITALS: BP 104/62; PULSE 82; O2SAT 98; BMI 24.5
--- OUTSIDE RECORDS SUMMARY | 2025-08-13 08:29 | XMS_ITS | Clinical Summary ---
Author Organization [facility] Address [address] [place] [phone] Phone Care Team Providers Care Structural Steel Shop Supervisor Name Role Phone Erasto Blanca MD Primary Care Provider [phone] Allergies No known active allergies Medications omeprazole [...] 11/19/2018 2:14 PM EST Plan of Treatment Upcoming Encounters Date Type Department Care Team (Late st Contact Info) Description 05/14/2026 2:00 PM EDT Office Visit [facility] [address] [place] [address] Zak Morgan MD [address] [place] [id number] [email or web address] Health Maintenance Due Date Last Done Comments DEPRESSION SCREENING 2009 HEPATITIS C SCREENING 2015 HIV ONE-TIME SCREENING (18-65 YEARS) 2015 PAP SMEAR 2018 SMOKING STATUS SCREENING (Once After 26 Yrs) 2023 INFLUENZA VACCINE (#1) 2025 , 09/14/2018, 06/29/2016, Additional history exists COVID-19 VACCINE (2024- season) 2025 Adult Td,Tdap Booster 03/23/2029 03/23/2019 , 03/25/2008, 09/13/2006 HIB VACCINES Completed 11/21/1998, 02/02, 1997, Additional history exists IPV VACCINES Completed 07/17/2001, 05/03, 1997, Additional history exists MENINGOCOCCAL VACCINES (ACWY) [...] topic Medical Devices Not on file Insurance [facility] Care Teams Structural Steel Shop Supervisor Relationship Specialty Start Date End Date Erasto Blanca MD [address] [place] [phone] PCP - General Internal Medicine 10/01/18 Additional Source Comments The information contained in this document represents components of the legal health record. It is not the complete legal health record.[facility]
== END 2025-08-13 08:51 | disposition home or self-care (01) ==
LOC: HO.HSMS 08:20
PROVIDERS: PCP Internal Medicine; Visit Provider Psychiatry & Neurology Neurology
DX: G24.3 Spasmodic torticollis (principal)
CPT/HCPCS: 64616

== ENCOUNTER → 2025-08-13 08:20 | Outpatient (BNVA) | payer MEDICAID, SELFPAY | PROVIDERS: PCP Internal Medicine; Visit Provider Psychiatry & Neurology Neurology | DX: G24.3 Spasmodic torticollis (principal); G43.109 Migraine with aura, not intractable, without status migrainosus; G24.9 Dystonia, unspecified | CPT/HCPCS: 64616; 99211; J0585 ==